=== PATIENT | female | born 1985 | race Caucasian/White ===

== ENCOUNTER 2019-08-30 08:52 | Outpatient (CLI) | payer MEDICAID ==
[~2019-08-30 08:52] MED LIST: FLUO20CA19 PO
[2019-08-30] MEDS ORDERED: antibiotic PO (09:16)
[2019-09-03] MEDS ORDERED: NONE PER PT (07:26)
== END 2019-08-30 23:59 | disposition home or self-care (01) ==
LOC: STAR 08:52
PROVIDERS: ATTEND Obstetrics & Gynecology Female Pelvic Medicine and Reconstructive Surgery
DX: Z02.9 Encounter for administrative examinations, unspecified (principal)